=== PATIENT | female | born 1960 | race Caucasian/White ===

== ENCOUNTER 2017-12-17 19:39 | Emergency (ER) | payer BC, OTHER ==
--- NOTE | 2017-12-17 20:27 | EDM.PDOC ---
ED HPI GENERAL MEDICAL PROBLEM - General Chief Complaint: General Stated Complaint: UNCONTROLLABLE TREBLING/ SHOULDER PAIN Time Seen by Provider: 12/17/17 20:10 Source of Information: Reports: Patient History Limitations: Reports: No Limitations - History of Present Illness INITIAL COMMENTS - FREE TEXT/NARRATIVE: HISTORY AND PHYSICAL: History of present illness: [Patient comes to the emergency room complaining of shaking involuntarily to her extremities and shoulders. She complains of a tight feeling in her neck and shoulders. Patient presents with her , and both are poor historians. Patient's recent psychiatric history is unclear that she was recently [facility] [facility] in [place]. She has been home approximately 10 days since her discharge. While hospitalized , she started taking Haldol twice a day, Zoloft daily, amlodipine daily, and benztropine twice a day. Over the Past few days she's had increased tightness in her neck and shoulders as well as a tremor to her extremities that she feels unable to control. These symptoms developed since she started the Haldol. She is otherwise feeling well and feels that the medications are working well for her. She finds the trembling to be distressing but is otherwise feeling well. She denies chest pain shortness of breath and difficulty breathing. Her appetite has been good and she's been drinking a lot of fluids. She feels that her mouth is dry on her new medications. No swelling to her feet or lower legs. After conversations and questioning, her diagnosis for these medications is still unclear. She is scheduled for a follow-up with psychiatrist at [facility]. but cannot be seen there for the next 10 days.] Review of systems: As per history of present illness and below otherwise all systems reviewed and negative. Past medical history: As per history of present illness and as reviewed below otherwise noncontributory. Surgical history: As per history of present illness and as reviewed below otherwise noncontributory. Social history: No reported history of drug or alcohol abuse. Family history: As per history of present illness and as reviewed below otherwise noncontributory. Physical exam: HEENT: Atraumatic, normocephalic. Oral mucous membranes are pink and dry. Throat is clear. Neck supple, posterior neck feels tight with palpation. No lymphadenopathy, trachea midline. Lungs: Clear to auscultation, breath sounds equal bilaterally. Heart: S1S2, regular rate and rhythm. Abdomen: Thin, Soft, nondistended, nontender. Negative for masses, guarding or rebound. Pelvis: Stable nontender. Genitourinary: Deferred. Rectal: Deferred. Extremities: Atraumatic, no cyanosis or edema to feet or lower legs. Neurovascular unremarkable. Neuro: Awake, alert, oriented. Motor and sensory unremarkable throughout. Exam nonfocal. Impression: [involuntary tremors] Plan: [Discussed w/ patient that her symptoms are likely EPS due to Haldol. Recommend increase benztropine from 0.5mg BID to 1mg BID, and follow-up at [facility]. Encouraged her to notify them tomorrow that she was seen in the ER tonight. She is in agreement w/ today's plan. All questions are answered and concerns are addressed. ] Definitive disposition and diagnosis as appropriate pending reevaluation and review of above. - Related Data Allergies Allergy/AdvReac Type Severity Reaction Status Date / Time No Known Allergies Allergy Verified 12/17/17 19:43 Past Medical History HEENT History: Reports: None Cardiovascular History: Reports: Hypertension Respiratory History: Reports: None Gastrointestinal History: Reports: None Genitourinary History: Reports: None ORGANIZATIONAL DEVELOPMENT SPECIALIST History: Reports: None Musculoskeletal History: Reports: None Neurological History: Reports: None Psychiatric History: Reports: Anxiety, Depression, Schizophrenia Endocrine/Metabolic History: Reports: None Dermatologic History: Reports: None - Past Surgical History HEENT Surgical History: Reports: None Social & Family History - Family History Family Medical History: Noncontributory - Tobacco Use Smoking Status *Q: Never Smoker - Recreational Drug Use Recreational Drug Use: No ED ROS GENERAL - Review of Systems Review Of Systems: ROS reveals no pertinent complaints other than HPI. ED EXAM, GENERAL - Physical Exam Exam: See Below Course - Vital Signs Last Recorded V/S: Last Vital Signs Temp 97.4 F 12/17/17 19:44 Pulse 95 12/17/17 19:44 Resp 20 12/17/17 19:44 BP 151/102 H 12/17/17 19:44 Pulse Ox 94 L 12/17/17 19:44 - Orders/Labs/Meds Orders: Active Orders 24 hr Category Date Time Status EKG Documentation Completion [RC] STAT Care 12/17/17 20:18 Active Departure - Departure Time of Disposition: 20:30 Disposition: Home, Self-Care 01 Condition: Good Clinical Impression: Involuntary trembling - Discharge Information Instructions: Tremor Referrals: Jeff Delatorre MD [Primary Care Provider] - Forms: ED Department Discharge Additional Instructions: The following information is given to patients seen in the emergency department who are being discharged to home. This information is to outline your options for follow-up care. We provide all patients seen in our emergency department with a follow-up referral. The need for follow-up, as well as the timing and circumstances, are variable depending upon the specifics of your emergency department visit. If you don't have a primary care physician on staff, we will provide you with a referral. We always advise you to contact your personal physician following an emergency department visit to inform them of the circumstance of the visit and for follow-up with them and/or the need for any referrals to a consulting specialist. The emergency department will also refer you to a specialist when appropriate. This referral assures that you have the opportunity for follow-up care with a specialist. All of these measure are taken in an effort to provide you with optimal care, which includes your follow-up. Under all circumstances we always encourage you to contact your private physician who remains a resource for coordinating your care. When calling for follow-up care, please make the office aware that this follow-up is from your recent emergency room visit. If for any reason you are refused follow-up, please contact the [facility] emergency department at and asked to speak to the emergency department charge nurse. [facility] Primary Care [address] [place] [id number] [facility] [address] [place] [id number] Call the above listed phone number at the [facility] to check if there have been any cancellations for a sooner appointment. Increase benztropine as we discussed. Return to ER as needed as discussed. - My Orders Last 24 Hours: My Active Orders 12/17/17 20:18 EKG Documentation Completion [RC] STAT - Assessment/Plan Last 24 Hours: My Active Orders 12/17/17 20:18 EKG Documentation Completion [RC] STAT
== END 2017-12-17 20:35 | disposition home or self-care (01) ==
LOC: MW.ED 19:39
DX: R25.1 Tremor, unspecified (principal); I10 Essential (primary) hypertension
CPT/HCPCS: 93005; 99283; 99283-25

== ENCOUNTER 2019-06-08 19:18 | Emergency (ER) | payer OTHER ==
--- NOTE | 2019-06-08 19:41 | EDM.PDOC ---
ED HPI GENERAL MEDICAL PROBLEM - General Chief Complaint: Behavioral/Psych Stated Complaint: MED CLEARANCE Time Seen by Provider: 06/08/19 19:37 - History of Present Illness INITIAL COMMENTS - FREE TEXT/NARRATIVE: HISTORY AND PHYSICAL: History of present illness: Patient 58-year-old female who presents in custody of law enforcement or medical clearance for psychiatric evaluation/admission Review of systems: As per history of present illness and below otherwise all systems reviewed and negative. Past medical history: As per history of present illness and as reviewed below otherwise noncontributory. Surgical history: As per history of present illness and as reviewed below otherwise noncontributory. Social history: No reported history of drug or alcohol abuse. Family history: As per history of present illness and as reviewed below otherwise noncontributory. Physical exam: Patient awake alert follows commands moves all extremities HEENT is atraumatic normocephalic. The reactive trachea is midline lungs are clear heart S1-S2 abdomen soft nondistended nontender extremities are benign neurologically patient is awake alert and has a limited but grossly nonfocal neurological exam Diagnostics: None Therapeutics: On Impression: #1 medical clearance for police hold/psychiatric psychiatric evaluation/ admission: #2 medical screening exam Definitive disposition and diagnosis as appropriate pending reevaluation and review of above. unable to assess Pain Score (Numeric/FACES): 0 - Related Data Allergies Allergy/AdvReac Type Severity Reaction Status Date / Time No Known Allergies Allergy Verified 12/17/17 19:43 Home Meds: Home Meds . [Unable to Verify Home Med List] 06/08/19 [History] Past Medical History HEENT History: Reports: None Cardiovascular History: Reports: Hypertension Respiratory History: Reports: None Gastrointestinal History: Reports: None Genitourinary History: Reports: None ECHOCARDIOGRAPHER History: Reports: None Musculoskeletal History: Reports: None Neurological History: Reports: None Psychiatric History: Reports: Anxiety, Depression, Schizophrenia Endocrine/Metabolic History: Reports: None Dermatologic History: Reports: None - Past Surgical History HEENT Surgical History: Reports: None Social & Family History - Family History Family Medical History: Noncontributory ED ROS GENERAL - Review of Systems Review Of Systems: ROS reveals no pertinent complaints other than HPI. ED EXAM, GENERAL - Physical Exam Exam: See Below (dictation) Departure - Departure Time of Disposition: 19:40 Disposition: Home, Self-Care 01 Condition: Good Clinical Impression: Encounter for medical screening examination - Discharge Information Instructions: Medical Screening Exam Referrals: PCP,Unknown [Primary Care Provider] - Forms: ED Department Discharge Additional Instructions: The following information is given to patients seen in the emergency department who are being discharged to home. This information is to outline your options for follow-up care. We provide all patients seen in our emergency department with a follow-up referral. The need for follow-up, as well as the timing and circumstances, are variable depending upon the specifics of your emergency department visit. If you don't have a primary care physician on staff, we will provide you with a referral. We always advise you to contact your personal physician following an emergency department visit to inform them of the circumstance of the visit and for follow-up with them and/or the need for any referrals to a consulting specialist. The emergency department will also refer you to a specialist when appropriate. This referral assures that you have the opportunity for followup care with a specialist. All of these measure are taken in an effort to provide you with optimal care, which includes your followup. Under all circumstances we always encourage you to contact your private physician who remains a resource for coordinating your care. When calling for followup care, please make the office aware that this follow-up is from your recent emergency room visit. If for any reason you are refused follow-up, please contact the [facility] emergency department at and asked to speak to the emergency department charge nurse. Transport as discussed to [facility] and/or [facility] for further evaluation and definitive disposition return as needed as discussed
== END 2019-06-08 19:40 | disposition home or self-care (01) ==
LOC: MW.ED 19:18
DX: Z13.9 Encounter for screening, unspecified (principal); I10 Essential (primary) hypertension
CPT/HCPCS: 99282; 99283